=== PATIENT | male | born 1945 | race Caucasian/White ===

== ENCOUNTER 2025-02-24 10:09 | Inpatient (IN) ==
[2025-02-24] MEDS ORDERED: IOPAMIDOL 100 ML BOTTLE IV ONE (10:10)
[2025-02-24 10:57] LABS: Basophils # (Auto) 0.02 K/mcL (0.00-0.30); Basophils % (Auto) 0.2 % (0.0-2.0); Eosinophils # (Auto) 0.01 K/mcL (0.00-0.70); Eosinophils % (Auto) 0.1 % (0.0-7.0); Hematocrit 39.5 % (40.1-51.0); Hemoglobin 12.5 g/dL (13.7-17.5); Lymphocytes # (Auto) 0.73 K/mcL (1.50-4.80); Lymphocytes % (Auto) 8.8 % (15.5-49.0); Mean Corpuscular HGB Conc 31.6 g/dL (31.0-36.0); Monocytes # (Auto) 0.44 K/mcL (0.10-0.90); Monocytes % (Auto) 5.3 % (1.0-12.0); Neutrophils % (Auto) 85.4 % (38.0-78.0); Platelet Count 196 K/mcL (140-440); RBC 5.30 M/mcL (4.63-6.08); WBC 8.3 K/mcL (4.5-11.0)
[2025-02-24 11:19] LABS: ALT/SGPT 11 U/L (<40); AST/SGOT 18 U/L (<40); Albumin 4.3 gm/dL (3.2-5.2); Albumin/Globulin Ratio 1.8 (1.0-2.3); Alkaline Phosphatase 68 U/L (39-117); Anion Gap 11.0 (8.0-16.0); Bilirubin,Total 0.5 mg/dL (0.1-1.0); Blood Urea Nitrogen 24 mg/dL (8-23); Calcium 9.7 mg/dL (8.6-10.4); Carbon Dioxide 23 mmol/L (22-30); Chloride 104 mmol/L (96-108); Globulin 2.4 gm/dL (2.2-3.7); Glucose 117 mg/dL (70-105); Potassium 4.3 mmol/L (3.3-5.1); Sodium 138 mmol/L (133-145)
[2025-02-24] MEDS: ONDANSETRON 4 MG/2 ML VIAL IV ONE (11:21)
[2025-02-24] MEDS: KETOROLAC 15 MG/ML VIAL IV ONE (11:21)
[2025-02-24 12:13] LABS: Bacteria,Urine Few /hpf (0); Bilirubin,Urine Negative (Negative); Color,Urine Yellow; Glucose,Urine (UA) Negative (Negative); Ketones,Urine Negative (Negative); Leukocyte Esterase,Urine Small /uL (Negative); Mucus,Urine Few /hpf; PH,Urine 8.0 (5.0-9.0); Protein,Urine 30 mg/dL (Negative); Specific Gravity,Urine 1.015 (1.000-1.035); Urine Amorphous Crystals Mod /hpf; Urobilinogen,Urine Normal
[2025-02-24] MEDS: cefTRIAXone 1 GM VIAL IV ONE (12:45)
[2025-02-24] MEDS: 0.9 % SODIUM CHLORIDE 1,000 ML IV ONE (12:48)
[2025-02-24] MEDS ORDERED: SENNOSIDES 1 TABLET PO PRN (14:26)
[2025-02-24] MEDS ORDERED: POLYETHYLENE GLYCOL 3350 17 GM PACKET PO PRN (14:26)
[2025-02-24] MEDS ORDERED: IPRATROPIUM/ALBUTEROL 3 ML AMPUL.NEB NEB PRN (14:26)
[2025-02-24] MEDS ORDERED: POTASSIUM CHLORIDE 20 MEQ TABLET PO PRN ×2 (14:26)
[2025-02-24] MEDS ORDERED: METOCLOPRAMIDE 10 MG/2 ML VIAL IV PRN (14:26)
[2025-02-24] MEDS ORDERED: MAGNESIUM SULFATE 2 GM/50 ML BAG IV PRN (14:26)
[2025-02-24] MEDS ORDERED: POTASSIUM CHLORIDE 40 MEQ in DEXTROSE 5% IN WATER 500 ML IV PRN (14:26)
[2025-02-24] MEDS: 0.9 % SODIUM CHLORIDE 10 ML SYRINGE IV SCH (14:31)
[2025-02-24] MEDS: 0.9 % SODIUM CHLORIDE 1,000 ML IV SCH (14:31)
[2025-02-24] MEDS: hydrALAZINE 20 MG/ML VIAL IV PRN (16:35)
[2025-02-24] MEDS: DOCUSATE SODIUM 100 MG CAPSULE PO SCH (20:05)
[2025-02-24] MEDS: HEPARIN 5,000 UNIT/ML VIAL SQ SCH (20:05)
[2025-02-24] MEDS: HYDROmorphone 0.5 MG/0.5 ML SYRINGE IV PRN (20:05)
[2025-02-24] MEDS: ONDANSETRON 4 MG/2 ML VIAL IV PRN (21:12)
[2025-02-24] MEDS: LISINOPRIL 20 MG TABLET PO SCH (21:52)
[2025-02-25] MEDS: ACETAMINOPHEN 325 MG TABLET PO PRN (04:30)
[2025-02-25 06:38] LABS: Basophils # (Auto) 0.02 K/mcL (0.00-0.30); Basophils % (Auto) 0.2 % (0.0-2.0); Eosinophils # (Auto) 0.03 K/mcL (0.00-0.70); Eosinophils % (Auto) 0.4 % (0.0-7.0); Hematocrit 34.4 % (40.1-51.0); Hemoglobin 10.7 g/dL (13.7-17.5); Lymphocytes # (Auto) 1.17 K/mcL (1.50-4.80); Lymphocytes % (Auto) 14.0 % (15.5-49.0); Mean Corpuscular HGB Conc 31.1 g/dL (31.0-36.0); Monocytes # (Auto) 0.66 K/mcL (0.10-0.90); Monocytes % (Auto) 7.9 % (1.0-12.0); Neutrophils % (Auto) 77.4 % (38.0-78.0); Platelet Count 172 K/mcL (140-440); RBC 4.55 M/mcL (4.63-6.08); WBC 8.4 K/mcL (4.5-11.0)
[2025-02-25 07:12] LABS: ALT/SGPT 10 U/L (<40); AST/SGOT 16 U/L (<40); Albumin 3.7 gm/dL (3.2-5.2); Albumin/Globulin Ratio 2.1 (1.0-2.3); Alkaline Phosphatase 56 U/L (39-117); Anion Gap 8.0 (8.0-16.0); Bilirubin,Direct 0.2 mg/dL (<0.3); Bilirubin,Total 0.5 mg/dL (0.1-1.0); Blood Urea Nitrogen 17 mg/dL (8-23); Calcium 8.4 mg/dL (8.6-10.4); Carbon Dioxide 23 mmol/L (22-30); Chloride 107 mmol/L (96-108); Globulin 1.8 gm/dL (2.2-3.7); Glucose 103 mg/dL (70-105); Phosphorous 2.8 mg/dL (2.5-4.5); Potassium 4.3 mmol/L (3.3-5.1); Sodium 138 mmol/L (133-145); Triglycerides 57 mg/dL (<150); Uric Acid 4.8 mg/dL (2.5-8.0)
[2025-02-25] MEDS: OMEPRAZOLE 20 MG CAPSULE PO SCH (07:15)
[2025-02-25] MEDS: LEVOTHYROXINE 50 MCG TABLET PO SCH (07:15)
[2025-02-25] MEDS: buPROPion 150 MG TAB.XL.24H PO SCH (08:29)
[2025-02-25] MEDS: METOPROLOL SUCCINATE 25 MG TAB.XL.24H PO SCH (08:30)
[2025-02-25] MEDS: DUTASTERIDE 0.5 MG CAPSULE PO SCH (08:30)
[2025-02-25 09:09] LABS: Bacteria,Urine 0 /hpf (0); Bilirubin,Urine Negative (Negative); Color,Urine Yellow; Glucose,Urine (UA) Negative (Negative); Ketones,Urine Negative (Negative); Leukocyte Esterase,Urine Trace /uL (Negative); PH,Urine 6.5 (5.0-9.0); Protein,Urine Negative (Negative); Specific Gravity,Urine 1.010 (1.000-1.035); Urobilinogen,Urine Normal
[2025-02-26 06:31] LABS: Basophils # (Auto) 0.02 K/mcL (0.00-0.30); Basophils % (Auto) 0.3 % (0.0-2.0); Eosinophils # (Auto) 0.18 K/mcL (0.00-0.70); Eosinophils % (Auto) 2.5 % (0.0-7.0); Hematocrit 35.9 % (40.1-51.0); Hemoglobin 11.1 g/dL (13.7-17.5); Lymphocytes # (Auto) 1.45 K/mcL (1.50-4.80); Lymphocytes % (Auto) 20.5 % (15.5-49.0); Mean Corpuscular HGB Conc 30.9 g/dL (31.0-36.0); Monocytes # (Auto) 0.63 K/mcL (0.10-0.90); Monocytes % (Auto) 8.9 % (1.0-12.0); Neutrophils % (Auto) 67.7 % (38.0-78.0); Platelet Count 173 K/mcL (140-440); RBC 4.74 M/mcL (4.63-6.08); WBC 7.1 K/mcL (4.5-11.0)
[2025-02-26 07:08] LABS: ALT/SGPT 9 U/L (<40); AST/SGOT 18 U/L (<40); Albumin 3.8 gm/dL (3.2-5.2); Albumin/Globulin Ratio 1.9 (1.0-2.3); Alkaline Phosphatase 61 U/L (39-117); Anion Gap 11.0 (8.0-16.0); Bilirubin,Direct 0.3 mg/dL (<0.3); Bilirubin,Total 0.5 mg/dL (0.1-1.0); Blood Urea Nitrogen 13 mg/dL (8-23); Calcium 8.6 mg/dL (8.6-10.4); Carbon Dioxide 21 mmol/L (22-30); Chloride 107 mmol/L (96-108); Globulin 2.0 gm/dL (2.2-3.7); Glucose 80 mg/dL (70-105); Phosphorous 2.0 mg/dL (2.5-4.5); Potassium 4.1 mmol/L (3.3-5.1); Sodium 139 mmol/L (133-145); Triglycerides 79 mg/dL (<150); Uric Acid 4.8 mg/dL (2.5-8.0)
[2025-02-26] MEDS ORDERED: fentaNYL 100 MCG/2 ML VIAL ONE (08:51)
[2025-02-26] MEDS ORDERED: PROPOFOL 200 MG/20 ML VIAL IV ONE (08:52)
[2025-02-26] MEDS ORDERED: SUCCINYLCHOLINE 200 MG/10 ML VIAL IV ONE (08:56)
[2025-02-26] MEDS ORDERED: LIDOCAINE 2% PF 5 ML VIAL ONE (08:56)
[2025-02-26] MEDS ORDERED: ONDANSETRON 4 MG/2 ML VIAL ONE (08:56)
[2025-02-26] MEDS ORDERED: DEXAMETHASONE 10 MG/ML VIAL ONE (08:56)
[2025-02-26] MEDS ORDERED: ROCURONIUM 10 MG/ML ML IV ONE (08:56)
[2025-02-26] MEDS ORDERED: GLYCOPYRROLATE 0.2 MG/ML VIAL IV ONE (08:56)
[2025-02-26] MEDS ORDERED: IPRATROPIUM/ALBUTEROL 3 ML AMPUL.NEB NEB PRN ×2 (09:00→10:03)
[2025-02-26] MEDS ORDERED: ePHEDrine 50 MG/5 ML SYRINGE (ANEST) IV ONE (09:09)
[2025-02-26] MEDS: ceFAZolin 2 GM in DEXTROSE 5% IN WATER 50 ML IV SCH (09:22)
[2025-02-26] MEDS ORDERED: HYDROmorphone 0.5 MG/0.5 ML SYRINGE ONE ×2 (09:28→10:15)
[2025-02-26] MEDS ORDERED: SUGAMMADEX SODIUM 200 MG/2 ML VIAL IV ONE (09:56)
[2025-02-26] MEDS ORDERED: HYDROmorphone 0.5 MG/0.5 ML SYRINGE IV PRN (10:03)
[2025-02-26] MEDS ORDERED: ONDANSETRON 4 MG/2 ML VIAL IV PRN (10:03)
[2025-02-26] MEDS ORDERED: LACTATED RINGERS 250 ML IV PRN (10:03)
[2025-02-26] MEDS ORDERED: fentaNYL 100 MCG/2 ML VIAL IV PRN (10:03)
[2025-02-26] MEDS ORDERED: NALOXONE HCL 0.4 MG/ML VIAL IV PRN (10:03)
[2025-02-26] MEDS ORDERED: METHOCARBAMOL 1,000 MG/10 ML VIAL IV PRN (10:03)
[2025-02-26] MEDS ORDERED: BENZOCAINE/MENTHOL 1 LOZENGE PO PRN (10:03)
[2025-02-26] MEDS: ACETAMINOPHEN 1,000 MG/100 ML BAG IV ONE (10:20)
[2025-02-26] MEDS: LABETALOL HCL 20 MG/4 ML VIAL IV PRN (12:13)
[2025-02-26] MEDS: SCOPOLAMINE 1 PATCH PATCH TOPICAL SCH (13:47)
[2025-02-26] MEDS: cefTRIAXone 1 GM VIAL IV SCH (18:07)
[2025-02-26] MEDS: LACTATED RINGERS 1,000 ML IV SCH (19:03)
[2025-02-26] MEDS ORDERED: SCOPOLAMINE 1 PATCH PATCH TOPICAL PRN (23:55)
[2025-02-27 06:31] LABS: Basophils # (Auto) 0.01 K/mcL (0.00-0.30); Basophils % (Auto) 0.1 % (0.0-2.0); Eosinophils # (Auto) 0 K/mcL (0.00-0.70); Eosinophils % (Auto) 0 % (0.0-7.0); Hematocrit 36.0 % (40.1-51.0); Hemoglobin 11.1 g/dL (13.7-17.5); Lymphocytes # (Auto) 1.33 K/mcL (1.50-4.80); Lymphocytes % (Auto) 13.2 % (15.5-49.0); Mean Corpuscular HGB Conc 30.8 g/dL (31.0-36.0); Monocytes # (Auto) 0.90 K/mcL (0.10-0.90); Monocytes % (Auto) 8.9 % (1.0-12.0); Neutrophils % (Auto) 77.6 % (38.0-78.0); Platelet Count 193 K/mcL (140-440); RBC 4.73 M/mcL (4.63-6.08); WBC 10.1 K/mcL (4.5-11.0)
[2025-02-27 06:54] LABS: ALT/SGPT 22 U/L (<40); AST/SGOT 33 U/L (<40); Albumin 3.9 gm/dL (3.2-5.2); Albumin/Globulin Ratio 1.9 (1.0-2.3); Alkaline Phosphatase 58 U/L (39-117); Anion Gap 12.0 (8.0-16.0); Bilirubin,Direct 0.2 mg/dL (<0.3); Bilirubin,Total 0.4 mg/dL (0.1-1.0); Blood Urea Nitrogen 19 mg/dL (8-23); Calcium 8.5 mg/dL (8.6-10.4); Carbon Dioxide 22 mmol/L (22-30); Chloride 103 mmol/L (96-108); Globulin 2.1 gm/dL (2.2-3.7); Glucose 108 mg/dL (70-105); Phosphorous 2.5 mg/dL (2.5-4.5); Potassium 4.3 mmol/L (3.3-5.1); Sodium 137 mmol/L (133-145); Triglycerides 75 mg/dL (<150); Uric Acid 5.7 mg/dL (2.5-8.0)
[2025-02-27 13:01] VITALS: TEMP 98.2; O2SAT 100
== END 2025-02-27 13:47 | disposition home or self-care (01) | DRG 418 ==
LOC: ED 10:09 → MEDSUR 14:20 → UNDODISIN 02-25 10:14
PROVIDERS: ADMIT Internal Medicine; ATTEND Internal Medicine

== ENCOUNTER 2025-06-15 12:25 | Inpatient (IN) ==
[2025-06-15 14:34] LABS: ALT/SGPT 13 U/L (<40); AST/SGOT 19 U/L (<40); Albumin 4.0 gm/dL (3.2-5.2); Albumin/Globulin Ratio 1.9 (1.0-2.3); Alkaline Phosphatase 72 U/L (39-117); Anion Gap 11.0 (8.0-16.0); Bilirubin,Total 0.6 mg/dL (0.1-1.0); Blood Urea Nitrogen 21 mg/dL (8-23); Calcium 9.7 mg/dL (8.6-10.4); Carbon Dioxide 25 mmol/L (22-30); Chloride 103 mmol/L (96-108); Globulin 2.1 gm/dL (2.2-3.7); Glucose 83 mg/dL (70-105); Potassium 4.0 mmol/L (3.3-5.1); Sodium 139 mmol/L (133-145)
[2025-06-15 14:37] LABS: Basophils # (Auto) 0.05 K/mcL (0.00-0.30); Basophils % (Auto) 0.8 % (0.0-2.0); Eosinophils # (Auto) 0.11 K/mcL (0.00-0.70); Eosinophils % (Auto) 1.7 % (0.0-7.0); Hematocrit 37.8 % (40.1-51.0); Hemoglobin 12.5 g/dL (13.7-17.5); Lymphocytes # (Auto) 1.84 K/mcL (1.50-4.80); Lymphocytes % (Auto) 27.6 % (15.5-49.0); Mean Corpuscular HGB Conc 33.1 g/dL (31.0-36.0); Monocytes # (Auto) 0.69 K/mcL (0.10-0.90); Monocytes % (Auto) 10.4 % (1.0-12.0); Neutrophils % (Auto) 59.3 % (38.0-78.0); Platelet Count 143 K/mcL (140-440); RBC 4.90 M/mcL (4.63-6.08); WBC 6.7 K/mcL (4.5-11.0)
[2025-06-15] MEDS: 0.9 % SODIUM CHLORIDE 1,000 ML IV ONE ×2 (14:41→19:48)
[2025-06-15] MEDS: LORazepam 2 MG/ML VIAL IV ONE (15:05)
[2025-06-15 15:14] LABS: Alcohol,Blood < 0.010 g/dL (<0.010)
[2025-06-15 15:29] LABS: Bacteria,Urine 0 /hpf (0); Bilirubin,Urine NEGATIVE (Negative); Color,Urine LT. YELLOW; Glucose,Urine (UA) NEGATIVE (Negative); Ketones,Urine NEGATIVE (Negative); Leukocyte Esterase,Urine NEGATIVE /uL (Negative); PH,Urine 5.5 (5.0-9.0); Protein,Urine NEGATIVE (Negative); Specific Gravity,Urine 1.015 (1.000-1.035); Urobilinogen,Urine 0.2 mg/dL
[2025-06-15 15:37] LABS: Barbiturate Screen,Urine None detected; Benzodiazepines Screen,Urine None detected; Fentanyl, Urine Screen None Detected; Opiate Screen,Urine None detected; Oxycodone, Urine Screen None detected; Phencyclidine Screen,Urine None detected
[2025-06-15] MEDS ORDERED: IPRATROPIUM/ALBUTEROL 3 ML AMPUL.NEB NEB PRN (18:02)
[2025-06-15] MEDS ORDERED: SENNOSIDES 1 TABLET PO PRN (18:02)
[2025-06-15] MEDS ORDERED: METOCLOPRAMIDE 10 MG/2 ML VIAL IV PRN (18:02)
[2025-06-15] MEDS ORDERED: POTASSIUM CHLORIDE 40 MEQ in DEXTROSE 5% IN WATER 500 ML IV PRN (18:02)
[2025-06-15] MEDS ORDERED: POTASSIUM CHLORIDE 20 MEQ TABLET PO PRN ×2 (18:02)
[2025-06-15] MEDS ORDERED: ONDANSETRON 4 MG/2 ML VIAL IV PRN (18:02)
[2025-06-15] MEDS ORDERED: MAGNESIUM SULFATE 2 GM/50 ML BAG IV PRN (18:02)
[2025-06-15 18:35] LABS: Thyroid Stimulating Hormone 3.87 uIU/mL (0.27-5.01)
[2025-06-15] MEDS ORDERED: hydrALAZINE 20 MG/ML VIAL IV PRN (19:06)
[2025-06-15] MEDS: DOCUSATE SODIUM 100 MG CAPSULE PO SCH (22:31)
[2025-06-16 06:02] LABS: Basophils # (Auto) 0.03 K/mcL (0.00-0.30); Basophils % (Auto) 0.5 % (0.0-2.0); Eosinophils # (Auto) 0.17 K/mcL (0.00-0.70); Eosinophils % (Auto) 2.7 % (0.0-7.0); Hematocrit 37.0 % (40.1-51.0); Hemoglobin 11.6 g/dL (13.7-17.5); Lymphocytes # (Auto) 1.56 K/mcL (1.50-4.80); Lymphocytes % (Auto) 24.6 % (15.5-49.0); Mean Corpuscular HGB Conc 31.4 g/dL (31.0-36.0); Monocytes # (Auto) 0.66 K/mcL (0.10-0.90); Monocytes % (Auto) 10.4 % (1.0-12.0); Neutrophils % (Auto) 61.6 % (38.0-78.0); Platelet Count 156 K/mcL (140-440); RBC 4.73 M/mcL (4.63-6.08); WBC 6.4 K/mcL (4.5-11.0)
[2025-06-16 06:24] LABS: ALT/SGPT 11 U/L (<40); AST/SGOT 17 U/L (<40); Albumin 3.7 gm/dL (3.2-5.2); Albumin/Globulin Ratio 2.1 (1.0-2.3); Alkaline Phosphatase 64 U/L (39-117); Anion Gap 10.0 (8.0-16.0); Bilirubin,Direct 0.3 mg/dL (<0.3); Bilirubin,Total 0.6 mg/dL (0.1-1.0); Blood Urea Nitrogen 19 mg/dL (8-23); Calcium 8.5 mg/dL (8.6-10.4); Carbon Dioxide 26 mmol/L (22-30); Chloride 106 mmol/L (96-108); Globulin 1.8 gm/dL (2.2-3.7); Glucose 84 mg/dL (70-105); Phosphorous 3.1 mg/dL (2.5-4.5); Potassium 4.0 mmol/L (3.3-5.1); Sodium 142 mmol/L (133-145); Triglycerides 60 mg/dL (<150); Uric Acid 6.5 mg/dL (2.5-8.0)
[2025-06-16] MEDS: LEVOTHYROXINE 50 MCG TABLET PO SCH (07:45)
[2025-06-16] MEDS: OMEPRAZOLE 20 MG CAPSULE PO SCH (07:45)
[2025-06-16] MEDS: ASPIRIN 81 MG TAB.CHEW PO SCH (08:07)
[2025-06-16] MEDS: buPROPion 150 MG TAB.XL.24H PO SCH (08:07)
[2025-06-16] MEDS: LISINOPRIL 20 MG TABLET PO SCH (08:07)
[2025-06-16] MEDS: ENOXAPARIN 40 MG/0.4 ML SYRINGE SQ SCH (08:07)
[2025-06-16] MEDS ORDERED: METOPROLOL SUCCINATE 25 MG TAB.XL.24H PO SCH (09:00)
[2025-06-16] MEDS ORDERED: DIAZEPAM 10 MG/2 ML SYRINGE IV PRN (09:05)
[2025-06-16] MEDS: DIAZEPAM 10 MG/2 ML SYRINGE IV ONE (09:46)
[2025-06-16] MEDS: POLYETHYLENE GLYCOL 3350 17 GM PACKET PO PRN (11:04)
[2025-06-16] MEDS: 0.9 % SODIUM CHLORIDE 10 ML SYRINGE IV SCH (17:04)
[2025-06-17] MEDS: DIAZEPAM 2 MG TABLET PO ONE (10:55)
[2025-06-17 12:20] VITALS: TEMP 98.4; O2SAT 98
[2025-06-17] MEDS: ACETAMINOPHEN 325 MG TABLET PO PRN (12:43)
== END 2025-06-17 13:15 | disposition home or self-care (01) | DRG 93 ==
LOC: ED 12:25 → ICU 17:57 → MEDSUR 06-16 16:16
PROVIDERS: ADMIT Internal Medicine; ATTEND Internal Medicine